=== PATIENT | female | born 1970 | race Caucasian/White ===

== ENCOUNTER 2018-11-16 21:50 | Emergency (ER) | payer BC, MEDICAID ==
[~2018-11-16] VITALS: Ht 175.3 cm; Wt 73.9 kg
[2018-11-16 22:13] VITALS: Ht 175.3 cm; Wt 73.9 kg
[2018-11-16] MEDS ORDERED: ROBAXIN500 MG PO (22:14)
[2018-11-16] MEDS ORDERED: VOLTAREN75 MG PO (22:15)
[2018-11-17] MEDS ORDERED: TORADOL10 MG PO (00:19)
[2018-11-17 00:26] LABS: HEMATOCRIT 41.1 % (36.0-48.0); HEMOGLOBIN 13.7 g/dL (12-16); LYMPHOCYTES 26.1 % (15-50); MCH 30.7 pg (26.0-34.0); MCHC 33.3 g/dL (31.0-37.0); MCV 92.2 fL (80.0-100.0); MEAN PLATELET VOLUME 11.1 fL (7.4-10.4); NEUTROPHILS 64.8 % (40-80); PLATELET COUNT 221 10x3/uL (130-400); RBC 4.46 10x6/uL (4.00-5.40); RDW 14.3 % (11.5-14.5); WBC 15.1 10x3/uL (4.8-10.8)
[2018-11-17 00:39] LABS: ALBUMIN 3.3 g/dL (3.4-5.0); CALC OSMOLALITY 282 mosm/kg (275-300); CALCIUM 8.3 mg/dL (8.5-10.1); CARBON DIOXIDE 27.5 mmol/L (21.0-32.0); CHLORIDE - SERUM 104 mmol/L (98-107); CREATININE - SERUM 0.8 mg/dL (0.6-1.3); GLUCOSE 123 mg/dL (74-106); POTASSIUM - SERUM 3.8 mmol/L (3.5-5.1); SODIUM 141 mmol/L (136-145); UREA NITROGEN 14 mg/dL (7-18); eGFR NON AFRICAN AMERICAN 82 mL/min (90-120)
[2018-11-17 01:05] LABS: ALKALINE PHOSPHATASE 55 U/L (46-116); ALT (SGPT) 21 U/L (10-68); BILIRUBIN - TOTAL 0.19 mg/dL (0.2-1.3); PROTEIN - SERUM 6.9 g/dL (6.4-8.2)
[2018-11-17 01:19] VITALS: BP 122/74
== END 2018-11-17 02:19 | disposition home or self-care (01) ==
LOC: D.ER 21:50
PROVIDERS: Family Medicine
DX: G24.3 Spasmodic torticollis (principal)

== ENCOUNTER 2019-12-17 14:26 | Emergency (ER) | payer MEDICAID ==
[~2019-12-17] VITALS: Ht 175.3 cm; Wt 71.8 kg
[~2019-12-17 14:26] MED LIST: ROBAXIN500 MG PO; TORADOL10 MG PO; VOLTAREN75 MG PO
[2019-12-17 14:34] VITALS: Ht 175.3 cm; Wt 71.8 kg
[2019-12-17 15:28] LABS: BASOPHILS 1.1 % (0-2); EOSINOPHILS 4.6 % (0-7); HEMATOCRIT 40.6 % (36.0-48.0); HEMOGLOBIN 13.1 g/dL (12-16); IMMATURE GRANULOCYTES 0.1 % (0-5); LYMPHOCYTES 25.2 % (15-50); MCH 30.3 pg (26.0-34.0); MCHC 32.3 g/dL (31.0-37.0); MEAN PLATELET VOLUME 11.7 fL (7.4-10.4); MONOCYTES 8.3 % (2-11); NEUTROPHILS 60.7 % (40-80); RBC 4.32 10x6/uL (4.00-5.40); RDW 13.7 % (11.5-14.5); WBC 12.1 10x3/uL (4.8-10.8)
[2019-12-17 15:29] LABS: BILIRUBIN NEGATIVE (NEGATIVE); GLUCOSE NEGATIVE (NEGATIVE); KETONE NEGATIVE (NEGATIVE); NITRITE NEGATIVE (NEGATIVE); UROBILINOGEN NORMAL (NORMAL)
[2019-12-17 15:29] LABS: PLATELET COUNT 270 10x3/uL (130-400)
[2019-12-17 15:39] LABS: CALC OSMOLALITY 276 mosm/kg (275-300); CALCIUM 8.6 mg/dL (8.5-10.1); CARBON DIOXIDE 25.6 mmol/L (21.0-32.0); CHLORIDE - SERUM 105 mmol/L (98-107); CREATININE - SERUM 0.8 mg/dL (0.6-1.3); GLUCOSE 106 mg/dL (74-106); POTASSIUM - SERUM 3.5 mmol/L (3.5-5.1); SODIUM 140 mmol/L (136-145); UREA NITROGEN 8 mg/dL (7-18); eGFR NON AFRICAN AMERICAN 81 mL/min (90-120)
[2019-12-17 15:45] LABS: ALBUMIN 3.4 g/dL (3.4-5.0); ALKALINE PHOSPHATASE 74 U/L (30-120); ALT (SGPT) 14 U/L (10-68); AMYLASE - SERUM 45 U/L (25-115); BILIRUBIN - TOTAL 0.26 mg/dL (0.2-1.3); LIPASE 121 U/L (73-393); PROTEIN - SERUM 7.2 g/dL (6.4-8.2); TROPONIN-I < 0.017 ng/mL (0.000-0.060)
[2019-12-17 17:00] VITALS: BP 98/54
[2019-12-17] MEDS ORDERED: FLAGYL500 MG PO (17:09)
[2019-12-17] MEDS ORDERED: CIPRO500 MG PO (17:09)
== END 2019-12-17 17:19 | disposition home or self-care (01) ==
LOC: D.ER 14:26
PROVIDERS: Family Medicine
DX: K52.9 Noninfective gastroenteritis and colitis, unspecified (principal); R10.11 Right upper quadrant pain; M54.9 Dorsalgia, unspecified